=== PATIENT | male | born 1955 | race Hispanic/Latino ===

== ENCOUNTER → 2022-12-23 | Outpatient (CLI) | payer BC, OTHER ==
[~2022-12-23] MED LIST: ERGO500014 PO
[2022-12-23 08:19] LABS: ALBUMIN 3.6 g/dL (3.5-5.0); POTASSIUM 4.3 mmol/L (3.5-5.1); TOTAL PROTEIN, SERUM 7.4 g/dL (6.0-8.3)
[2022-12-23 08:30] LABS: BASOPHILS % (AUTO) 1.2 % (0.0-5.0); EOSINOPHILS % (AUTO) 9.3 % (0.0-8.0); HEMATOCRIT 45.7 % (42-54); LYMPHOCYTES % (AUTO) 34.7 % (21.0-51.0); MEAN CORPUSCULAR HEMOGLOBIN 30.2 pg (27.0-33.0); MEAN CORPUSCULAR HGB CONC 32.8 g/dL (32.0-36.0); MONOCYTES % (AUTO) 11.2 % (3.0-13.0); NEUTROPHILS % (AUTO) 43.3 % (40.0-77.0); PLATELET COUNT (AUTO) 202 K/uL (130-400); RED BLOOD CELL COUNT(AUTO) 4.97 MIL/uL (4.50-6.20); RED CELL DISTRIBUTION WIDTH 13.1 % (11.0-15.5); WHITE BLOOD COUNT (AUTO) 6.7 K/uL (4.8-10.8)
== END | disposition home or self-care (01) ==
LOC: RAH 07:31
PROVIDERS: ATTEND Internal Medicine Gastroenterology
DX: R10.11 Right upper quadrant pain (principal)
CPT/HCPCS: 36415; 76700; 80053; 82150; 83690; 85025

== ENCOUNTER → 2023-01-15 | Outpatient (CLI) | payer OTHER ==
[~2023-01-15] MED LIST changes: +0.9%NACL 1000ML 1,000 ML IV ONE; -ERGO500014 PO; +OMEP40CA21 PO; +SUCR1TAB2 PO
== END | disposition home or self-care (01) ==
LOC: DAH 10:00 → EDSTATUS 01-18 12:00
PROVIDERS: ATTEND Internal Medicine Gastroenterology
DX: R10.9 Unspecified abdominal pain (principal); R12 Heartburn
CPT/HCPCS: 43239; 88305; 88342; A4606; J7030

== ENCOUNTER 2023-01-18 10:20 | Day surgery (SDC) | payer OTHER ==
[~2023-01-18] VITALS: Ht 167.6 cm; Wt 70.8 kg
[2023-01-18] VITALS (8 sets, daily range): BP systolic 103–138; BP diastolic 65–86
[~2023-01-18 10:20] MED LIST changes: -0.9%NACL 1000ML 1,000 ML IV ONE
[2023-01-18] MEDS ORDERED: LIDOCAINE HCL 1% 20 ML VIAL ONE (12:36)
[2023-01-18] MEDS ORDERED: PROPOFOL 10 MG/ML 20ML VIAL IV ONE (12:36)
== END 2023-01-18 10:45 | disposition home or self-care (01) ==
LOC: DAH 10:20 → ENDO 10:20
PROVIDERS: ATTEND Internal Medicine Gastroenterology
DX: R10.10 Upper abdominal pain, unspecified (principal); Z20.822 Contact with and (suspected) exposure to COVID-19; K21.9 Gastro-esophageal reflux disease without esophagitis; K64.9 Unspecified hemorrhoids; K29.50 Unspecified chronic gastritis without bleeding; Z86.010 Personal history of colon polyps
CPT/HCPCS: 87426; 43239; J7030 ×2; J2704; A4620; A4215 ×2; A4223; A7002; A4222; A4221; A4663; A4216; A4606

== ENCOUNTER → 2024-06-03 | Outpatient (CLI) | payer OTHER ==
[~2024-06-03] MED LIST changes: -OMEP40CA21 PO; +PANT20TA18 PO; -SUCR1TAB2 PO
== END | disposition home or self-care (01) ==
LOC: SHCH 08:33
PROVIDERS: ATTEND Internal Medicine Cardiovascular Disease
DX: I25.10 Atherosclerotic heart disease of native coronary artery without angina pectoris (principal); R07.9 Chest pain, unspecified
CPT/HCPCS: 93306